=== PATIENT | male | born 1955 | race Caucasian/White ===

== ENCOUNTER → 2019-02-04 | Outpatient (CLI) | payer OTHER ==
--- NOTE | 2019-02-04 13:13 | PCVCIMAG ---
APPROVED REPORT Study performed: 02/04/2019 08:46:11 EXAM: Comprehensive 2D, Doppler, and color-flow Echocardiogram Patient Location: Echo lab Status: routine BSA: 2.09 HR: 64 bpmBP: 120/62 mmHg Rhythm: NSR Other Information Study Quality: Adequate Risk Factors: Cardiac Risk Factors: HTN, Hyperlipidemia Indications Fatigue elevated coronary calcium score 2D Dimensions IVSd: 10.74 (7-11mm) LVDd: 46.44 mm PWd: 9.69 (7-11mm)Ascending Ao: 34.76 (22-36mm) LVDs: 30.65 (25-40mm) Left Atrium: 40.04 (27-40mm) Aortic Root: 31.93 mm LV Single Plane 4CH: 58.26 % LV Single Plane 2CH: 59.42 % Biplane EF: 58.6 % Volumes Left Atrial Volume (Systole) Single Plane 4CH: 41.82 mLSingle Plane 2CH: 63.77 mL LA ESV Index: 26.00 mL/m2 Aortic Valve AoV Peak Lavell.: 1.62 m/s AO Peak Gr.: 10.54 mmHgLVOT Max P.70 mmHg LVOT Max V: 0.96 m/s Mitral Valve E/A Ratio: 1.4 MV Decel. Time: 192.04 ms MV E Max Lavell.: 0.57 m/s MV A Lavell.: 0.41 m/s IVRT: 114.19 ms Pulmonary Valve PV Peak Lavell.: 1.15 m/sPV Peak Gr.: 5.30 mmHg Pulmonary Vein P Vein S: 0.35 m/sP Vein A: 0.37 m/s P Vein D: 0.53 m/sP Vein A Dur.: 103.8 msec P Vein S/D Ratio: 0.66 Tricuspid Valve TR Peak Lavell.: 2.44 m/s TR Peak Gr.: 23.84 mmHg Left Ventricle The left ventricle is normal size. There is normal LV segmental wall motion. There is normal left ventricular wall thickness. Left ventricular systolic function is normal. The left ventricular ejection fraction is within the normal range. LVEF is 55-60%. Grade I - abnormal relaxation pattern. Right Ventricle Right ventricle is mildly dilated. The right ventricular systolic function is normal. Atria The left atrium size is normal. Right atrium is mildly dilated. Aortic Valve The aortic valve is normal in structure. No aortic regurgitation is present. There is no aortic valvular stenosis. Mitral Valve The mitral valve is normal in structure. Trace mitral regurgitation. No evidence of mitral valve stenosis. Tricuspid Valve The tricuspid valve is normal in structure. Mild tricuspid regurgitation with PAP of 31 mmHg. Pulmonic Valve The pulmonary valve is normal in structure. There is no pulmonic valvular regurgitation. Great Vessels The aortic root is normal in size. IVC is normal in size and collapses >50% with inspiration. Pericardium There is no pericardial effusion. There is no pleural effusion. <Conclusion> The left ventricle is normal size. LVEF is 55-60%. Right ventricle is mildly dilated. The aortic valve is normal in structure. The mitral valve is normal in structure. Trace mitral regurgitation. The tricuspid valve is normal in structure. Mild tricuspid regurgitation with PAP of 31 mmHg. The pulmonary valve is normal in structure. There is no pericardial effusion.
--- NOTE | 2019-02-07 15:34 | PCVCIMAG ---
APPROVED REPORT Imaging Protocol: Rest Tc-99m/Stress Tc-99m 1 day Study performed: 02/04/2019 10:18:56 Indication: CAD, Ca+ Score Patient Location: Out-Patient Stress Nurse: Shelby Bourgeois RN, Kym Santiago RN CT Tech:CHARIS Thompson Ht: 5 ft 10 in Wt: 200 lbs BSA: 2.09 m2 HR: 69 bpm BP: 127/74 mmHg BMI: 28.6 Rhythm: Sinus Rhythm Medical History Medical History: Age, HLP, HTN Medications: Olmesartan, Crestor Allergies: PCN Resting Data Rest SPECT myocardial perfusion imaging was performed in supine position 45 minutes following the intravenous injection of 10.8 mCi of Tc-99m Sestamibi. Time of rest injection: 924 Date: 02/04/2019 Administration Route: IV Administration Site: Right AC Exercise Stress At peak stress, the patient was injected intravenously with 32.5mCi of Tc-99m Sestamibi. Time of stress injection: 924 Date: 02/04/2019 Administration Route: IV Administration Site: Right AC Patient continued to exercise for 1 minute(s). Gated Stress SPECT was performed 45 minutes after stress injection. The images were gated to evaluate regional wall motion and calculate left ventricular ejection fraction. Stress Test Details Stress Test: Exercise stress testing was performed using a Kamran protocol. HRMax Heart Rate (APMHR): 156 bpm Resting HR: 69 bpmTarget HR (85% APMHR): 132 bpm Max HR Achieved: 144 bpm % of APMHR: 92 Recovery HR: 70 bpm BP Resting BP: 127/74 mmHg Max BP: 186/84 mmHg Recovery BP: 126/59 mmHg ECG Resting ECG: Sinus Rhythm Stress ECG: Sinus Tachycardia Arrhythmia: VPC's Recovery ECG: Sinus Rhythm Clinical Reason for Termination: Maximal effort Stress Symptoms: Dyspnea Exercise duration: 10 min 30 sec Exercise capacity: 13.40 METs Symptoms resolved during recovery. Stress ECG Conclusion 1. subjerctively negative for ischemia 2. electrocardiographically negative for ischemia 3. satisfactory functional capacity Study Data Post stress, the left ventricular ejection was 73%.. SSS: 0 SRS: 0 SDS: 0 TID = 1.03. Perfusion There is a large area of moderately reduced uptake in the entire segment of the inferior wall which is seen on the stress images as well as the resting images. This area thickens and moves normally and is most consistent with attenuation artifact. Nuclear Conclusion ECG Findings: non-diagnostic Clinical Findings: negative for ischemia Nuclear Findings: negative for ischemia Exercise Capacity: not assessed Left Ventricular Function: normal 1. low risk study 2. post stress lvef 73% with normal contractility Interpreted by: Marva Mayer MD Electronically Approved: 02/07/2019 15:33:35 <Conclusion> 1. subjerctively negative for ischemia 2. electrocardiographically negative for ischemia 3. satisfactory functional capacity
== END | disposition home or self-care (01) ==
LOC: PCVCIMAG 10:10
PROVIDERS: ATTEND Internal Medicine
DX: I25.10 Atherosclerotic heart disease of native coronary artery without angina pectoris (principal); R93.1 Abnormal findings on diagnostic imaging of heart and coronary circulation; E78.5 Hyperlipidemia, unspecified; I10 Essential (primary) hypertension; Z88.0 Allergy status to penicillin
CPT/HCPCS: 78452; 93017; 93306; A9500